=== PATIENT | female | born 1980 | race Caucasian/White ===

== ENCOUNTER 2022-06-21 14:46 | Outpatient (CLI) | payer OTHER, SELFPAY ==
--- NOTE | 2022-06-21 15:00 | CRLHL7_ITS ---
For Patients: As a result of the Cures Act, medical imaging exams and procedure reports are released immediately into your electronic medical record. You may view this report before your referring provider. If you have questions, please contact your health care provider. Indication: Palpable lump Technique: Neck ultrasound Comparison: No comparison Findings: Normal morphology right cervical lymph node, subcentimeter short axis in the area of lump. Dictated by Yesenia Hernandez MD @ 06/23/2022 5:37:49 AM (Electronically Signed)
== END 2022-06-21 14:47 | disposition home or self-care (01) ==
LOC: US 14:48
PROVIDERS: PCP Nurse Practitioner Family; Visit Provider Nurse Practitioner Family
DX: R22.1 Localized swelling, mass and lump, neck (principal)
CPT/HCPCS: 76536

== ENCOUNTER 2023-10-15 12:45 | Emergency (ER) | payer OTHER, SELFPAY ==
[2023-10-15] VITALS (22 sets, daily range): BP systolic 127; BP diastolic 76; PULSE 61–79; RESP 18; TEMP 35.9; O2SAT 94–99; BMI 36.8
--- NOTE | 2023-10-15 12:46 | ED_ITS ---
HPI - General Adult General Date Seen: 10/15/23 Chief complaint: Abdominal Pain Stated complaint: Abdominal pain Time Seen by Provider: 10/15/23 12:46 History of Present Illness HPI narrative: 43-year-old female with a past history including tobacco use, anxiety, genital herpes, shoulder bursitis, who presents to the ER today by EMS for evaluation of severe right lower quadrant abdominal pain. She has been normal lately with no antecedent symptoms. No recent urinary trouble, trouble bowel movements, fever, nausea or vomiting. No known injury. She was normal when she woke up this morning. She was eating breakfast when she had sudden onset of pain loc ated in her right lower quadrant just above her right hip. She says it feels like there is a ball of pressure there. It comes and goes in severe waves. When the pain is severe she is nauseous and she has thrown up once (nonbloody). Bowel movements have been normal. Urination has been normal. She has been sweaty from pain but not running a fever. No rash. No known injury. She has never had any previous abdominal surgeries. No other abdominal problems. she received Zofran 4 mg, Toradol 15 mg and fentanyl 100 mcg per EMS and is now feeling considerably better. Related Data Home Medications Medication Instructions Recorded Confirmed acetaminophen 650 mg 650 mg PO Q12H PRN 10/15/23 10/15/23 tablet,extended release (Tylenol Arthritis Pain) Previous Rx's Medication Instructions Recorded hydrocodone 5 mg-acetaminophen 325 1 tab PO Q4-6H PRN pain #10 tabs 10/15/23 mg tablet ondansetron 4 mg disintegrating 4 mg PO Q8H PRN nausea and 10/15/23 tablet vomiting #10 tabs Allergies Allergy/AdvReac Type Severity Reaction Status Date / Time No Known Allergies Allergy Verified 10/15/23 12:55 [facility] Medical History History of ovarian cyst Surgical History History of left knee surgery History of right knee surgery (10/06/21) History of right knee surgery (06/14/16) Family History Other No pertinent family history Social History Smoking Status: Never smoker Non-prescribed substance use: denies use Exam Narrative: Exam Narrative: Constitutional: Appears well-developed and well-nourished. Alert. Uncomfortable but jovial. Overall,Conversant. Non toxic. HENT: Head: Atraumatic. Nose: Nose normal. Mouth/Throat: Oral mucosa is clear and moist. no trismus. Pharynx normal. Eyes: Conjunctivae normal. EOM normal. Pupils equal, round, and reactive to light. No scleral icterus. Neck: Normal range of motion. Neck supple. No tracheal deviation present. Cardiovascular: Normal rate, regular rhythm. No gallop. No friction rub. No murmur heard. Symmetric radial artery pulses Pulmonary/Chest: Effort normal. No stridor. No respiratory distress. No wheezes. No rales. No rhonchi . No Ribcagetenderness. Abdominal: Soft. Bowel sounds normal. No distension. No mass. right lower quad tenderness. No rebound. No guarding. no CVA tenderness. No palpable inguinal mass or inguinal tenderness. No rash. Musculoskeletal: RUE: Normal range of motion. No tenderness. No deformity LUE: Normal range of motion. No tenderness. No deformity RLE: Normal range of motion. No edema. No tenderness. No deformity LLE: Normal range of motion. No edema. No tenderness. No deformity Neurological: Alert and oriented to person, place, and time. Normal strength. CN II-VII intact. No sensory deficit. GCS eye subscore is 4. GCS verbal subscore is 5. GCS motor subscore is 6. Normal coordination Skin: Skin is warm and dry. No rash noted. No pallor. Normal capillary refill. Psychiatric: Normal mood. Normal affect. Const: Vital Signs, click to edit/add: Vital Signs - 24 hr 10/15/23 12:56 10/15/23 13:18 10/15/23 13:30 Temperature 96.6 F L Pulse Rate 69 72 Pulse Rate [Pulse Oximeter] 72 Respiratory Rate 18 Blood Pressure [Ri ght Upper Arm] 127/76 Pulse Oximetry 97 97 97 Oxygen Delivery Me thod Room Air 10/15/23 13:35 10/15/23 13:45 10/15/23 14:00 Temperature Pulse Rate 66 66 79 Pulse Rate [Pulse Oximeter] Respiratory Rate Blood Pressure [Ri ght Upper Arm] Pulse Oximetry 95 97 97 Oxygen Delivery Me thod 10/15/23 14:15 10/15/23 14:30 10/15/23 14:35 Temperature Pulse Rate 69 67 65 Pulse Rate [Pulse Oximeter] Respiratory Rate Blood Pressure [Ri ght Upper Arm] Pulse Oximetry 98 98 98 Oxygen Delivery Me thod 10/15/23 14:45 10/15/23 15:00 10/15/23 15:15 Temperature Pulse Rate 68 74 68 Pulse Rate [Pulse Oximeter] Respiratory Rate Blood Pressure [Ri ght Upper Arm] Pulse Oximetry 99 98 97 Oxygen Delivery Me thod 10/15/23 15:30 10/15/23 15:45 10/15/23 16:00 Temperature Pulse Rate 69 62 64 Pulse Rate [Pulse Oximeter] Respiratory Rate Blood Pressure [Ri ght Upper Arm] Pulse Oximetry 97 96 97 Oxygen Delivery Me thod 10/15/23 16:25 10/15/23 16:30 10/15/23 16:45 Temperature Pulse Rate 75 68 69 Pulse Rate [Pulse Oximeter] Respiratory Rate Blood Pressure [Ri ght Upper Arm] Pulse Oximetry 97 98 97 Oxygen Delivery Me thod 10/15/23 17:00 10/15/23 17:15 10/15/23 17:30 Temperature Pulse Rate 65 61 67 Pulse Rate [Pulse Oximeter] Respiratory Rate Blood Pressure [Ri ght Upper Arm] Pulse Oximetry 94 94 96 Oxygen Delivery Me thod 10/15/23 17:46 Temperature Pulse Rate 69 Pulse Rate [Pulse Oximeter] Respiratory Rate Blood Pressure [Ri ght Upper Arm] Pulse Oximetry 99 Oxygen Delivery Me thod Course Course ED Course: Recheck-CT scan came back showing large cystic mass adjacent to right ovary. Discussed with Gynecology. They Rue plan to get pelvic ultrasound. Unless there is recurrent severe pain they would recommend outpatient follow-up in clinic so they can get tumor markers and do planning for operative intervention. However the patient has recurrent severe pain, Gynecology would come in and take the patient to the OR to evaluate for possible torsion. Reevaluation(s) Reevaluation #1: Recheck-discussed with patient her family. She is eager to discharge but is willing to stay for ultrasound. Reevaluation #2: Recheck-ultrasound came back showing a cystic mass. Unable to clearly identify right ovary but we are suspicious that this mass is coming from the right ovary. She is having minimal ongoing pain but says if anything she would take Tylenol for it. No recurrent severe pain. She is eager for discharge. Vital Signs Vital signs: Initial Vital Signs Temperature 96.6 F L 10/15/23 12:56 Temperature Source Temporal Artery Scan 10/15/23 12:56 Pulse Rate 72 10/15/23 12:56 Respiratory Rate 18 10/15/23 12:56 Blood Pressure 127/76 10/15/23 12:56 Blood Pressure Mean 93 10/15/23 12:56 Blood Pressure Position Sitting 10/15/23 12:56 Pulse Oximetry 97 10/15/23 12:56 Oxygen Delivery Method Room Air 10/15/23 12:56 Vital Signs Temperature 96.6 F L 10/15/23 12:56 Pulse Rate 72 10/15/23 12:56 Respiratory Rate 18 10/15/23 12:56 Blood Pressure 127/76 10/15/23 12:56 Pulse Oximetry 97 10/15/23 12:56 Oxygen Delivery Method Room Air 10/15/23 12:56 Temperature 96.6 F L 10/15/23 12:56 Pulse Rate 69 10/15/23 17:46 Respiratory Rate 18 10/15/23 12:56 Blood Pressure 127/76 10/15/23 12:56 Pulse Oximetry 99 10/15/23 17:46 Oxygen Delivery Method Room Air 10/15/23 12:56 Medical Decision Making MDM Narrative Medical decision making narrative: Very pleasant 43-year-old female presenting to the ER today by EMS for severe sudden-onset right lower quadrant abdominal pain. Pain is now much improved (nearly completely resolved) after Toradol and fentanyl per EMS. Differential includes kidney stone, pyelonephritis, unusual presentation of appendicitis, right-sided diverticulitis, colitis, volvulus, torsion, obstruction, ovarian pathology, among others. Urinalysis is normal. Stone protocol CT scan shows no evidence for any obstructing stones or hydronephrosis. Appendix normal and no other inflammatory pathology noted on CT. There is a finding of an 11 x 12 x 14 cm right ovarian cystic lesion. Pelvic ultrasound redemonstrates the cystic lesion. With a large lesion like this concern is for possible torsion. She did have severe pain prior to presentation but is very comfortable here in the ER. She was monitored for several hours without any significant return of pain. She did note some mild recurrent pain but says if anything she would take Tylenol for it. It was not severe. At this point there is no did convincing evidence for ongoing ovarian torsion or any clear surgical emergency. Discussed with the patient, in detail, our concern for torsion. She understands that if she does have any worsening pain she should return to the ER immediately to be rechecked. She understands the risk of torsion. Discussed with Gynecology, Dr. Roman. She would recommend as long as the patient's pain is very low the patient should follow-up in clinic for tumor markers and further evaluation given that there is overall low clinical probab ility for torsion and that surgery would be safer and better for the patient after further workup. If there is concern for malignancy she would do better with surgery done by field automobile adjuster/Onc. Therefore, if surgery can be delayed, it would be better for the patient. However with recurrent severe pain, this raises concern for torsion, this would push us toward emergent operative intervention. The patient plans to travel to [place], leaving tomorrow. We advised her that it would be best to stay home. International travel with potential for recurrent torsion could lead to a medical emergency on the plane or while she is traveling abroad. She verbalizes her understanding. She is provided with a doctor's note so that she can provided to her airline. Lab Data Labs: Lab Results 10/15/23 10/15/23 Range/Units 13:04 14:04 WBC 14.79 H (4.50-11.00) K/uL RBC 4.26 (4.00-5.20) m/uL Hgb 12.8 (12.0-16.0) gm/dL Hct 39.2 (33.0-51.0) % MCV 92 (80-100) fL MCH 30 (26-34) pg MCHC 33 (32-36) gm/dL RDW Coeff of Celena 13.0 (11.5-15.5) % Plt Count 307 (140-440) K/uL Neut % (Auto) 76.0 H (42.0-72.0) % Lymph % (Auto) 16.6 L (20-44) % Garrett % (Auto) 5.8 (0.0-11.0) % Eos % (Auto) 1.1 (0.0-7.0) % Baso % (Auto) 0.3 (0.0-3.0) % Neut # (Auto) 11.20 H (1.7-7.0) K/uL Lymph # (Auto) 2.50 (0.90-2.90) K/uL Garrett # (Auto) 0.90 (0.00-0.90) K/UL Eos # (Auto) 0.20 (0.00-0.50) K/uL Baso # (Auto) 0.00 (0.00-0.30) K/uL Abs Immat Gran (auto) 0.00 (0.00-0.30) K/uL Imm/Tot Granulo (auto) 0.2 % Sodium 136 (135-149) mmol/L Potassium 3.6 (3.6-5.1) mmol/L Chloride 107 (96-114) mmol/L Carbon Dioxide 23 (20-32) mmol/L Anion Gap 6 L (7-15) mEq/L BUN 13 (5-24) mg/dL Creatinine 0.5 (0.5-1.5) mg/dL Estimated Creat Clear 138.17 Estimated GFR 118 ml/min Glucose 124 H (60-115) mg/dL Calcium 10.1 (8.4-10.6) mg/dL Total Bilirubin 0.3 (0.1-1.5) mg/dL AST 22 (12-35) U/L ALT 26 (4-35) U/L Alkaline Phosphatase 84 (40-150) U/L Total Protein 7.2 (6.0-8.3) g/dL Albumin 4.0 (3.3-5.0) g/dL Lipase 77 (23-300) U/L Urine Color Sherry A (Yellow) Urine Appearance Slightly Cloudy A (Clear) Urine pH 6.0 (5.0-8.5) Ur Specific [place] >= 1.030 (1.000-1.030) Urine Protein Negative (Negative) Urine Glucose (UA) Negative (Negative) Urine Ketones Negative (Negative) Urine Blood Negative (Negative) Urine Nitrite Negative (Negative) Urine Bilirubin Negative (Negative) Urine Urobilinogen 0.2 (0.2-1.0) Ur Leukocyte Esterase Negative (Negative) Urine RBC 0-2 (0-2) Urine WBC 0-2 (0-5) Ur Squamous Epith Cells None (None-Few) Urine Bacteria None (None) Urine HCG, Qual Negative (Negative) Imaging Data CT scan - abdomen: Attestation: I have reviewed the pertinent imaging results. Radiologist's impression: Impression: 1. No CT evidence of an acute process involving the abdomen or pelvis. 2. Large cystic lesion arising from the right ovary measuring 11 x 12 x 14 centimeters with multiple thin internal septations, favored to represent an ovarian tumor such as an ovarian serous cystadenoma. Recommend consultation with gynecology for further management recommendations. 3. No abdominopelvic lymphadenopathy. 4. There is an exophytic soft tissue density lesion arising from the anterior aspect of the interpolar region of the left kidney measuring approximately 2.4 centimeters in greatest dimension, incompletely characterized on this exam. Recommend dedicated CT or MR with a renal protocol for further assessment. US pelvis: Attestation: I have reviewed the pertinent imaging results. Radiologist's impression: FINDINGS: 10.0 x 9.8 x 13.6 cm right adnexal complex cystic mass with multiple thick internal septations. Spectral Doppler demonstrates peripheral low resistance systemic arterial blood flow. Internal venous blood flow is demonstrated on spectral Doppler at the confluence of 2 curvilinear septations (image 290). LMP: Not provided. Uterus: Measures 4.3 x 4.0 x 8.3cm. 2.1 cm left posterior myometrial fibroid which abuts the endometrial stripe (image 160). Multiple simple nabothian cysts are noted incidentally. Please note that US is insensitive for detection of epithelial lesions of the cervix, compared to physical examination. Endometrial stripe: Measures 5mm. Uniform in thickness. Right Ovary: A normal right ovary is not identified. Left Ovary: Measures 2.3 x 2.0 x 4.1cm. 2.6 cm follicle. Spectral Doppler demonstrates normalarterial and venousblood flow. Pelvic fluid: No significant pelvic ascites. Small volume free fluid within physiologic limits of normal. IMPRESSION: 13.6 cm right adnexal complex cystic mass described above, likely ovarian in nature. Neoplastic disease is included in the differential for this lesion. GENETIC TECHNOLOGIST surgical referral is recommended for definitive treatment. Incidental uterine fibroid described above. Discharge Plan Discharge Clinical Impression: Abdominal pain, right lower quadrant, Mass of right ovary Patient Disposition: Home, Self-Care Condition: Stable Instructions: Ovarian Cyst (ED) Additional Instructions: Please follow-up with the supervisor [facility] in [place] within 1 week. Call on Tuesday to arrange an ER follow-up with the gynecologists. Call [phone] on Tuesday to schedule an ER follow-up visit. If you have any worsening pain, nausea or vomiting, fever, or other worsening symptoms, return to the ER immediately to be rechecked. Use Tylenol or ibuprofen if needed for mild pain. Use caution with prescription pain killers because they can cause drowsiness, sedation, constipation, and can be addictive. We advise you not to travel to [place] until this cyst is completely worked up. Call your airline to see if you can reschedule your travel. Prescriptions: New hydrocodone-acetaminophen 5-325 mg tablet 1 tab PO Q4-6H PRN (Reason: pain) Qty: 10 0RF ondansetron 4 mg tablet,disintegrating 4 mg PO Q8H PRN (Reason: nausea and vomiting) Qty: 10 0RF No Action acetaminophen [Tylenol Arthritis Pain] 650 mg tablet extended release 650 mg PO Q12H PRN Follow Up/Referrals: Kyra Taylor, WEARING APPAREL FOLDER, FOREST OFFICER [Primary Care Provider] - Stand Alone Forms: [employer] Info Instructions
--- NOTE | 2023-10-15 12:54 | CT_ITS ---
Patient: SCAR TOBIAS Facility:?[facility] Patient ID:?[id number] Site Patient ID:?[id number]. Site :?[id number] Study:?CT-Abdomen/Pelvis WITHOUT-10/15/2023 1:18:33 PM Ordering Physician:?DR. MCRAE Final Report: Indication: Right lower quadrant pain, nausea and vomiting Technique: CT abdomen/pelvis without IV contrast Comparison: None Findings: The visualized lower thorax is unremarkable. The liver, gallbladder, spleen, pancreas, and bilateral adrenal glands are unremarkable. The kidneys are normal in size. There is an exophytic soft tissue density lesion arising from the anterior aspect of the interpolar region of the left kidney measuring approximately 2.4 centimeters in greatest dimension. No renal calculi or hydroureteronephrosis. The bladder is within normal limits in appearance. The uterus appears within normal limits. Likely fallopian tube control coils. The left ovary appears within normal limits. There is a cystic lesion arising from the right ovary with multiple thin internal septations without significant nodular wall components measuring approximately 11 centimeters AP by 12 centimeters transverse by 14 centimeters craniocaudal. No evidence of bowel obstruction or inflammation. The appendix is normal in appearance. No free fluid or free air. No abdominal or pelvic abscess. No abdominopelvic lymphadenopathy. No abdominal aortic aneurysm. Small fat containing umbilical hernia. The osseous structures are unremarkable. Impression: 1. No CT evidence of an acute process involving the abdomen or pelvis. 2. Large cystic lesion arising from the right ovary measuring 11 x 12 x 14 centimeters with multiple thin internal septations, favored to represent an ovarian tumor such as an ovarian serous cystadenoma. Recommend consultation with gynecology for further management recommendations. 3. No abdominopelvic lymphadenopathy. 4. There is an exophytic soft tissue density lesion arising from the anterior aspect of the interpolar region of the left kidney measuring approximately 2.4 centimeters in greatest dimension, incompletely characterized on this exam. Recommend dedicated CT or MR with a renal protocol for further assessment. Please note that all CT scans at this facility use dose modulation, iterative reconstruction, and/or weight-based dosing when appropriate to reduce radiation dose to as low as reasonably achievable. Dictated by Luiz Gallego MD @ 10/15/2023 2:20:52 PM Signed by:?Luiz Gallego MD @10/15/2023 2:20:52 PM (Electronic Signature)
[2023-10-15 13:14] LABS: Basophils Percent Auto 0.3 % (0.0-3.0); Eosinophils Percent Auto 1.1 % (0.0-7.0); Hematocrit 39.2 % (33.0-51.0); Hemoglobin* 12.8 gm/dL (12.0-16.0); Immature Granulocytes Pct Auto 0.2 %; Lymphocytes Percent Auto 16.6 % (20-44); Mean Corpuscular HGB Conc 33 gm/dL (32-36); Mean Corpuscular Hemoglobin 30 pg (26-34); Mean Corpuscular Volume 92 fL (80-100); Monocytes Percent Auto 5.8 % (0.0-11.0); Platelet Count* 307 K/uL (140-440); Red Blood Count 4.26 m/uL (4.00-5.20); White Blood Count* 14.79 K/uL (4.50-11.00)
[2023-10-15 13:23] LABS: Slide Review Reflex No
[2023-10-15 13:29] LABS: Chloride* 107 mmol/L (96-114); Potassium* 3.6 mmol/L (3.6-5.1); Sodium* 136 mmol/L (135-149)
[2023-10-15 13:31] LABS: Anion Gap 6 mEq/L (7-15); Bilirubin Total* 0.3 mg/dL (0.1-1.5); Carbon Dioxide* 23 mmol/L (20-32); Creatinine* 0.5 mg/dL (0.5-1.5); Est. Creatinine Clearance* 138.17; Estimated Glomerular Filt Rate 118 ml/min
[2023-10-15 13:32] LABS: Alanine Aminotransferase* 26 U/L (4-35); Alkaline Phosphatase* 84 U/L (40-150); Aspartate Amino Transferase* 22 U/L (12-35); Blood Urea Nitrogen* 13 mg/dL (5-24); Calcium* 10.1 mg/dL (8.4-10.6); Glucose* 124 mg/dL (60-115); Lipase* 77 U/L (23-300); Total Protein* 7.2 g/dL (6.0-8.3)
[2023-10-15 14:18] LABS: Appearance Urine Slightly Cloudy (Clear); Bilirubin Urine Negative (Negative); Blood Urine Negative (Negative); Color Urine Amber (Yellow); Glucose Urine Negative (Negative); Ketones Urine Negative (Negative); Leukocyte Esterase Urine Negative (Negative); Nitrite Urine Negative (Negative); Protein Urine Negative (Negative); Specific Gravity Urine >= 1.030 (1.000-1.030); Urobilinogen Urine 0.2 (0.2-1.0)
[2023-10-15 14:25] LABS: Ur HCG Qualitative* Negative (Negative)
[2023-10-15 14:44] LABS: RBC Urine 0-2 (0-2); WBC Urine 0-2 (0-5)
--- NOTE | 2023-10-15 15:16 | US_ITS ---
Patient: SCAR TOBIAS Facility:?[facility] Patient ID:?[id number] Site Patient ID:?[id number]. Site :?[id number] Study:?US-Pelvis TV-10/15/2023 4:36:52 PM Ordering Physician:?ED Final Report: INDICATION: Right ovarian mass. COMPARISON: Today`s CT of the abdomen and pelvis. TECHNIQUE: Pelvic grayscale and spectral Doppler ultrasound via an endovaginal approach. FINDINGS: 10.0 x 9.8 x 13.6 cm right adnexal complex cystic mass with multiple thick internal septations. Spectral Doppler demonstrates peripheral low resistance systemic arterial blood flow. Internal venous blood flow is demonstrated on spectral Doppler at the confluence of 2 curvilinear septations (image 290). LMP: Not provided. Uterus: Measures 4.3 x 4.0 x 8.3cm. 2.1 cm left posterior myometrial fibroid which abuts the endometrial stripe (image 160). Multiple simple nabothian cysts are noted incidentally. Please note that US is insensitive for detection of epithelial lesions of the cervix, compared to physical examination. Endometrial stripe: Measures 5mm. Uniform in thickness. Right Ovary: A normal right ovary is not identified. Left Ovary: Measures 2.3 x 2.0 x 4.1cm. 2.6 cm follicle. Spectral Doppler demonstrates normalarterial and venousblood flow. Pelvic fluid: No significant pelvic ascites. Small volume free fluid within physiologic limits of normal. IMPRESSION: 13.6 cm right adnexal complex cystic mass described above, likely ovarian in nature. Neoplastic disease is included in the differential for this lesion. SILO PAINTER surgical referral is recommended for definitive treatment. Incidental uterine fibroid described above. Dictated by Iftikhar Underwood MD @ 10/15/2023 5:07:05 PM Signed by:?Iftikhar Underwood MD @10/15/2023 5:07:05 PM (Electronic Signature)
== END 2023-10-15 18:01 | disposition home or self-care (01) ==
PROVIDERS: Emergency Provider Emergency Medicine; PCP Nurse Practitioner Family
DX: R10.31 Right lower quadrant pain (principal); N83.201 Unspecified ovarian cyst, right side
CPT/HCPCS: 36415; 74176; 76830; 80053; 81001; 81025; 83690; 85025; 93976; 99284

== ENCOUNTER 2023-10-25 10:12 | Outpatient (CLI) | payer OTHER, BC, SELFPAY | END 2023-10-25 10:13 | disposition home or self-care (01) | PROVIDERS: PCP Nurse Practitioner Family; Visit Provider Obstetrics & Gynecology | DX: N83.8 Other noninflammatory disorders of ovary, fallopian tube and broad ligament (principal) | CPT/HCPCS: 82378; 86301; 86304 ==

== ENCOUNTER 2023-12-22 09:01 | Outpatient (CLI) | payer OTHER, BC, SELFPAY | END 2023-12-22 09:02 | disposition home or self-care (01) | PROVIDERS: PCP Nurse Practitioner Family; Visit Provider Nurse Practitioner Family | DX: Z01.818 Encounter for other preprocedural examination (principal) | CPT/HCPCS: 80053; 85025 ==

== ENCOUNTER 2024-01-31 09:04 | Outpatient (CLI) | payer OTHER, BC, SELFPAY ==
--- NOTE | 2024-01-31 09:00 | CRLHL7_ITS ---
For Patients: As a result of the Century Cures Act, medical imaging exams and procedure reports are released immediately into your electronic medical record. You may view this report before your referring provider. If you have questions, please contact your health care provider. INDICATION: Renal mass. TECHNIQUE: CT abdomen and pelvis acquired with 119 cc Isovue 370 IV contrast. COMPARISON: None. FINDINGS: Lower chest: Unremarkable. Liver: Unremarkable. Normal in size and attenuation. No suspicious masses. Gallbladder and bile ducts: Unremarkable. No stones or inflammation. No biliary dilatation. Pancreas: Unremarkable. No mass or inflammation. Spleen: Unremarkable. Normal in size. No masses. Adrenal glands: Unremarkable. No nodules. Kidneys: Lobular 2.4 x 1.9 x 1.7 centimeter mass arising from the anterior aspect of the left kidney. This measures 38 Hounsfield units precontrast, 69 Hounsfield units postcontrast and 82 Hounsfield units on the delayed acquisition. Relatively homogeneous enhancement. No other renal mass. No hydronephrosis. GI tract: Unremarkable. Normal in caliber. No sign of mass or inflammation. Vasculature: Abdominal aorta is normal in caliber. Mesenteric arteries are patent. Lymph nodes: No lymphadenopathy. Peritoneum/Abdominal Wall: Small fat containing umbilical hernia. No sign of mass or infiltration. No free air or significant free fluid. Bones: Unremarkable for age. IMPRESSION: Lobular 2.4 centimeter left renal mass demonstrates enhancement after contrast administration. This is consistent with a solid renal mass and hence is suspicious for RCC. Please note that all CT scans at this facility use dose modulation, iterative reconstruction, and/or weight-based dosing when appropriate to reduce radiation dose to as low as reasonably achievable. Dictated by Vik Astudillo MD @ 02/01/2024 6:31:57 AM (Electronically Signed)
== END 2024-01-31 09:05 | disposition home or self-care (01) ==
LOC: CT 09:05
PROVIDERS: PCP Nurse Practitioner Family; Visit Provider Nurse Practitioner Family
DX: N28.89 Other specified disorders of kidney and ureter (principal)
CPT/HCPCS: 74170; 74178; Q9967

== ENCOUNTER 2024-05-17 09:07 | Outpatient (CLI) | payer OTHER, SELFPAY ==
--- OUTSIDE RECORDS SUMMARY | 2024-05-18 09:31 | XMS_ITS | Encounter Summary ---
Author Organization [facility] Address [address] [place] [address] Care Team Providers Care Stock Handler Floorperson Name Role Phone Unavailable Primary Care Provider Unavailabl e Reason for Referral * Outpatient (Routine) - Closed Specialty Diagnoses / Procedures Referred By Marquis reveles Referred To Contact Urology Diagnoses Mass Kidney Kyra Taylor, C.N.P. [address] [place] [address] [facility] Referral ID Status Reason Start Date Expiration Date Visits Re quested Visits Authorized [id number] Closed 02/02/2024 08/03/2025 1 1 Encounter Details Date Type Department Care Team (Late st Contact Info) Description 02/02/2024 [facility] [address] [place] [address] Kyra Taylor, C.N.P. [address] [place] [address] Mass Kidney (Primary Dx) Social History Tobacco Use Types Packs/Day Years Used Date Smoking Tobacco: Every Day Cigarettes Smokeless Tobacco: Never Alcohol Use Standard Drinks/Week Comments Yes 0 (1 standard drink = 0.6 oz pur e alcohol) social [facility] Utilities Answer Date Recorded In the past 12 months has e electric, gas, oil, or water company threatened to shut off services in your home? No 02/07/2024 AUDIT-C Answer Date Recorded Frequency of Alcohol Consumption Monthly or less 07/26/2019 Average Number of Drinks Not on file 019 Frequency of Binge Drinking Not on file 07/08 Exercise Vital Sign Answer Date Recorde d On average, how many days pe r week do you engage in moderate to strenuous exercise (like a brisk walk)? 7 days 02/07/2024 On average, how many minutes do you engage in exercise at this level? 20 min 02/07/2024 Hunger Vital Sign Answer Date Recorded Within the past 12 months, y ou worried that your food would run out before you got the money to buy more. Never true 02/07/20 24 Within the past 12 months, t he food you bought just didn't last and you didn't have money to get more. Never true 02/07/2024 PRAPARE - Transportation Answer Date Re corded In the past 12 months, has l ack of transportation kept you from medical appointments or from getting medications? No 09/2023 In the past 12 months, has l ack of transportation kept you from meetings, work, or from getting things needed for daily living? No 02/07/2024 Nutrition Answer Date Recorded On average, how many serving s of fruits and vegetables do you eat per day (serving size is equal to 1 cup or approximately the size of a tennis ball)? 0-2 02/07/2024 Dental Answer Date Recorded Dental: Regular Dentist Yes 02/07/20 Employment Answer Date Recorded Employment status Employed and actively working without restrictions 02/07/2024 Housing Stability Answer Date Recorded What is your living situation today? I have a [facility] place to live 02/07/2024 Sex and Gender Information Value Date Recorded Sex Assigned at Female 02/05/2024 10:49 PM CDT Gender Identity Female 02/05/2024 10:49 PM CDT Sexual Orientation Straight 02/05/2024 10 :49 PM CDT documented as of this encounter Plan of Treatment Upcoming Encounters Date Type Department Care Team (Latest Contact Info) Description 07/13/2024 11:00 AM LOGISTICS ANALYST Clinical Communication Virtual Review in [place], [place] [address] [place] [phone] 07/17/2024 7:45 AM LOGISTICS ANALYST Appointment Department of Radiology, [facility], in [place], [place] [address] [place] [address] Phuong Barrientos APRN, C.NPaulo, M.S.N. [address] [place] [phone] 07/17/2024 1:30 PM LOGISTICS ANALYST Procedure visit Department of Urology in [place], [place] [address] [place] [phone] Phuong Barrientos APRN, C.N.P., M.S.N. [address] [place] [phone] 07/17/2024 2:30 PM LOGISTICS ANALYST Comprehensive Visit Department of Urology in [place], [place] [address] [place] [phone] Lotus Marshall APRN, C.NPaulo, M.S.N. [address] [place] [phone] Scheduled Referrals Name Type Priority Associated Diagnoses Order Schedule Nephrology & Hypertension Referral Outpatient Referral Routine Mass Kidney Expected: 02/02/2024 (Approximate), Expires: 05/04/2025 documented as of this encounter Visit Diagnoses Diagnosis Mass Kidney- Primary documented in this encounter
--- OUTSIDE RECORDS SUMMARY | 2024-05-18 09:31 | XMS_ITS | Encounter Summary ---
Author Organization [facility] Address [address] [place] [address] Care Team Providers Care Nutritional Services Cook Name Role Phone Unavailable Primary Care Provider Unavailabl e Reason for Referral * Outpatient (Routine) - Closed Specialty Diagnoses / Procedures Referred By Marquis t Referred To Contact Diagnoses Mass Kidney Procedures DX Chest AP or PA and Lateral 2 Views Rigo Barakat M.D. [address] [place] [address] [facility] Referral ID Status Reason Start Date Expiration Date Visits Re quested Visits Authorized [id number] Closed 02/03/2024 02/02/2025 1 1 Encounter Details Date Type Department Care Team (Late st Contact Info) Description 02/03/2024 Clinical Communication Department of Urology in [place], [place] [address] [place] [phone] Rigo Barakat M.D. [address] [place] [phone] Social History Tobacco Use Types Packs/Day Years [...] your living situation today? I have a [facility] place to live 02/07/2024 Sex and Gender Information Value Date Recorded Sex Assigned at Female 02/05/2024 10:49 PM CDT Gender Identity Female 02/05/2024 10:49 PM CDT Sexual Orientation Straight 02/05/2024 10 :49 PM CDT documented as of this encounter Plan of Treatment Upcoming Encounters Date Type Department Care Team (Latest Contact Info) Description 07/13/2024 11:00 AM LINE PRODUCTION COOK Clinical Communication Virtual Review in [place], [place] [address] [place] [address] 07/17/2024 7:45 AM LINE PRODUCTION COOK Appointment Department of Radiology, [facility], in [place], [place] [address] [place] [address] Phuong Barrientos APRN, C.NRachelle., M.S.N. [address] [place] [phone] 07/17/2024 1:30 PM LINE PRODUCTION COOK Procedure visit Department of Urology in [place], [place] [address] [place] [address] Puhong Barrientos APRN, C.NRachelle., M.S.N. [address] [place] [phone] 07/17/2024 2:30 PM LINE PRODUCTION COOK Comprehensive Visit Department of Urology in [place], [place] [address] [place] [address] Lotus Marshall APRN, C.NPaulo, M.S.N. [address] [place] [phone] documented as of this encounter Results * DX Chest AP or PA and Lateral 2 Views (02/06/2024 10:51 AM CDT) Anatomical Region Laterality Modality Chest, Thoracic RST LOS, Tho racic ARZ LOS, Thoracic FLA LOS N/A Digital Radiography Impressions 02/06/2024 11:07 AM CDT Mild degenerative changes thoracic spine. Chest otherwise negative. Narrative 02/06/2024 11:07 AM CDT EXAM: ??DX CHEST AP OR PA AND LATERAL 2 VIEWS Procedure Note Blaine Neumann M.D. - 02/06/2024 EXAM: DX CHEST AP OR PA AND LATERAL 2 VIEWS IMPRESSION: Mild degenerative changes thoracic spine. Chest otherwise negative. Rigo EPSTEIN DIAGNOSTIC IMAGI NG PROCEDURES * Urinalysis, with Microscopic: Urine, Midstream (02/06/2024 10:32 AM CDT) Source Urine, Urine, Midstream 02/06/2024 11:14 AM CDT DTL Color, U Yellow 02/06/2024 11:15 AM CDT DTL Clarity, U Clear 02/06/2024 11:15 AM CDT DTL Protein, U 13 <26 mg/dL 02/06/2024 12:00 PM CDT DTL Protein/Osmol ality 0.19 <0.42 ratio 02/06/2024 12:00 PM CDT DTL Predicted 24 HR Protein, U 146 <229 mg/24 h 02/06/2024 12:00 PM CDT DTL Predicted Range 36-591 mg/24 h 02/06/2024 12:00 PM CDT DTL Urine (Urine, Midstream) 02/06/2024 10:32 AM CDT 02/06/2024 11:14 AM CDT Rigo Barakat M.D. LAB URINE ORDERABLES Performing Organization Address City/[facility]/ZIP Co de Phone Number [facility] [address] [place] [address], [facility] [address] [place] [address] * Creatinine with Estimated GFR (02/06/2024 10:27 AM CDT) Creatinine 0.83 0.59 - 1.04 mg/dL 02/06/2024 11:33 AM CDT DTL Estimated GFR (eGFR) 89 >=60 mL/min/BSA 02/06/2024 11:33 AM CDT DTL Comment: Estimated GFR calculated using the 2020 CKD_EPI creatinine equation. Blood (Blood, Venous) 02/06/2024 10:27 AM CDT 02/06/2024 11:13 AM CDT Rigo Barakat M.D. LAB BLOOD ADD-ON [facility] [address] [place] [address], [facility] [address] [place] [address] * (ABNORMAL) Calcium, Total (02/06/2024 10:27 AM CDT) Calcium, Total, S 10.2(H) 8.6 - 10.0 mg/dL 02/06/2024 11:33 AM CDT DTL Blood (Blood, Venous) 02/06/2024 10:27 AM CDT 02/06/2024 11:13 AM CDT Rigo Barakat M.D. LAB BLOOD ADD-ON [facility] [address] [place] [address], [facility] [address] [place] [address] * Electrolyte (Chem 4) Panel (02/06/2024 10:27 AM CDT) Sodium, S 139 135 - 145 mmol/L 02/06/2024 11:33 AM CDT DTL Potassium, S 4.7 3.6 - 5.2 mmol/L 02/06/2024 11:33 AM CDT DTL Chloride, S 105 98 - 107 mmol/L 02/06/2024 11:33 AM CDT DTL Bicarbonate, S 23 22 - 29 mmol/L 02/06/2024 11:33 AM CDT DTL Anion Gap 11 7 - 15 02/06/2024 11:33 AM CDT DTL Blood (Blood, Venous) 02/06/2024 10:27 AM CDT 02/06/2024 11:13 AM CDT Rigo Barakat M.D. LAB BLOOD ADD-ON [facility] [address] [place] [address], [facility] [address] [place] [address] * BUN (Blood Urea Nitrogen) (02/06/2024 10:27 AM CDT) BUN (Blood Urea Nitrogen), S 11 6 - 21 mg/dL 02/06/2024 11:33 AM CDT DTL Blood (Blood, Venous) 02/06/2024 10:27 AM CDT 02/06/2024 11:13 AM CDT Rigo Barakat M.D. LAB BLOOD ADD-ON [facility] [address] [place] [address], [facility] DTL [facility] [address] [place] [address] * CBC with Differential, Blood (02/06/2024 10:27 AM CDT) Hemoglobin 13.7 11.6 - 15.0 g/dL 02/06/2024 11:14 AM CDT DTL Hematocrit 42.6 35.5 - 44.9 % 02/06/2024 11:14 AM CDT DTL Erythrocytes 4.53 3.92 - 5.13 x10(12)/L 02/06/2024 11:14 AM CDT DTL MCV 94.0 78.2 - 97.9 fL 02/06/2024 11:14 AM CDT DTL RBC Distrib Width 13.8 12.2 - 16.1 % 02/06/2024 11:14 AM CDT DTL Platelet Count 294 157 - 371 x10(9)/L 02/06/2024 11:14 AM CDT DTL Leukocytes 7.3 3.4 - 9.6 x10(9)/L 02/06/2024 11:14 AM CDT DTL Neutrophils 4.36 1.56 - 6.45 x10(9)/L 02/06/2024 11:14 AM CDT DHPM Lymphocytes 2.05 0.95 - 3.07 x10(9)/L 02/06/2024 11:14 AM CDT DTL Monocytes 0.57 0.26 - 0.81 x10(9)/L 02/06/2024 11:14 AM CDT DTL Eosinophils 0.21 0.03 - 0.48 x10(9)/L 02/06/2024 11:14 AM CDT DTL Basophils 0.07 0.01 - 0.08 x10(9)/L 02/06/2024 11:14 AM CDT DT Blood (Blood, Venous) 02/06/2024 10:27 AM CDT 02/06/2024 10:52 AM CDT Rigo Barakat M.D. LAB BLOOD ADD-ON [facility] [address] 200 [place] [address] * AST (Aspartate Aminotransferase) (02/06/2024 10:27 AM CDT) Aspartate Aminotransferase (AST), S 25 8 - 43 U/L 02/06/2024 11:33 AM CDT DT Blood (Blood, Venous) 02/06/2024 10:27 AM CDT 02/06/2024 11:13 AM CDT Rigo Barakat M.D. LAB BLOOD ADD-ON [facility] [address] 200 [place] [address] * ALT (Alanine Aminotransferase) (02/06/2024 10:27 AM CDT) Alanine Aminotransferase (ALT), S 37 7 - 45 U/L 02/06/2024 11:33 AM CDT DT Blood (Blood, Venous) 02/06/2024 10:27 AM CDT 02/06/2024 11:13 AM CDT Rigo Barakat M.D. LAB BLOOD ADD-ON [facility] [address] [place] [address] [place] [address] * (ABNORMAL) Alkaline Phosphatase (02/06/2024 10:27 AM CDT) Alkaline Phosphatase, S 105(H) 35 - 104 U/L 02/06/2024 11:33 AM CDT DTL Blood (Blood, Venous) 02/06/2024 10:27 AM CDT 02/06/2024 11:13 AM CDT Rigo Barakat M.D. LAB BLOOD ADD-ON [facility] [address] [place] [address], [facility] [address] [place] [address] documented in this encounter Visit Diagnoses Diagnosis Mass Kidney- Primary Mass Kidney documented in this encounter
--- OUTSIDE RECORDS SUMMARY | 2024-05-18 09:31 | XMS_ITS | Clinical Summary ---
Author Organization [facility] Address [address] [place] [address] Care Team Providers Care Bakery Helper Name Role Phone Unavailable Primary Care Provider Unavailabl e Source Comments Patient records contain information from all sites at [facility]. For routine questions regarding patient records, call [phone] during business hours, M-F 8:00 AM - 5:00 PM Central Time. Record requests for emergency care only can be directed to [phone] at any time.[facility] Allergies No known active allergies Medications Medication Sig Dispensed Refills Start Date End Date Status ACETAMINOPHEN ORAL Take 1 capsule by mouth as needed. Active IBUPROFEN ORAL Take 1 capsule by mouth as needed. Active Active Problems Problem Noted Date Diagnosed Date Obesity Body Mass Index 30-39.9 Adult 07/26/2019 Tobacco Use 11/16/2011 Herpes Genitalis 08/20/2010 Resolved Problems Problem Noted Date Diagnosed Date Resolved Date Cyst Ovary 03/09/2013 07/26/2019 Menorrhagia 03/09/2013 07/26/2019 Encounters Date Type Department Care Team Description 03/23/2024 11:27 AM CDT - 03/23/2024 11:59 PM CDT Hospital Encounter Department of Laboratory Medicine and Pathology, [facility] in [place], [place] [address] [place] [phone] Santos Hawkins M.D. Mass Kidney; Kidney And Ureter Disorder Discharge Disposition: Home or Self Care 03/23/2024 Clinical Communication Department of Medical Genetics in [place], [place] [address] [place] [phone] Loreto Abdul M.S., [facility] Ambry : BABS 03/21/2024 9:15 AM CDT Telemedicine Department of Medical Genetics in [place], [place] [address] [place] [address] Phuong Barrientos APRN, C.N.P., M.S.N. Loreto Abdul M.S., [facility] Mass Kidney; Kidney And Ureter Disorder from Last 3 Months Immunizations Name Administration Dates Next Due HepB, Unspecified 01/08/2008,08/23/2007,07/19/20 07 Influenza, Unspecified 08/16/2008,07/05/2005 Td (Adult), adsorbed 05/08/2003 Tdap 08/10/2012 Family History Medical History Relation Name Comments Brain cancer Maternal Grandfather Relation Name Status Comments Father Half-Brother 1 Alive Half-Brother 2 Alive Half-Sibling Alive Half-Sister 1 Alive Half-Sister 2 Alive Maternal Grandfather (Age 55) Maternal Grandmother Alive Mother Alive Mother's Brother Alive Mother's Sister Alive Son 1 Alive Son 2 Alive Social History Tobacco Use Types Packs/Day Years Used Date Smoking Tobacco: Every Day Cigarettes Smokeless Tobacco: Never Tobacco Cessation:Ready to Q uit: Not Asked; Counseling Given: Not Answered Alcohol Use Standard Drinks/Week Comments Yes 0 (1 standard drink = 0.6 oz pur e alcohol) social [employer] Utilities Answer Date Recorded In the past 12 months has e [employer], gas, oil, or water [employer] threatened to shut off services in your [...] your living situation today? I have a [facility] place to live 02/07/2024 Sex and Gender Information Value Date Recorded Sex Assigned at Female 02/05/2024 10:49 PM CDT Gender Identity Female 02/05/2024 10:49 PM CDT Sexual Orientation Straight 02/05/2024 10 :49 PM CDT Last Filed Vital Signs Vital Sign Reading Time Taken Comments Blood Pressure 100/64 07/26/2019 9:07 AM PASSENGER RELATIONS REPRESENTATIVE Pulse 80 07/26/2019 9:07 AM PASSENGER RELATIONS REPRESENTATIVE Temperature - - Respiratory Rate 16 07/26/2019 9:07 AM PASSENGER RELATIONS REPRESENTATIVE Oxygen Saturation - - Inhaled Oxygen Concentration - - Weight 97.1 kg (214 lb 1.1 oz) 07/26/2019 9:07 A M PASSENGER RELATIONS REPRESENTATIVE Height 167.6 cm (5' 5.98) 07/26/2019 9:07 AM CS T Body Mass Index 34.57 07/26/2019 9:07 AM PASSENGER RELATIONS REPRESENTATIVE Plan of Treatment Upcoming Encounters Date Type Department Care Team (Latest Contact Info) Description 07/13/2024 11:00 AM PASSENGER RELATIONS REPRESENTATIVE Clinical Communication Virtual Review in [place], [place] [address] [place] [address] 07/17/2024 7:45 AM PASSENGER RELATIONS REPRESENTATIVE Appointment Department of Radiology, [facility], in [place], [place] [address] [place] [phone] Phuong Barrientos APRN, C.N.P., M.S.N. [address] [place] [phone] 07/17/2024 1:30 PM PASSENGER RELATIONS REPRESENTATIVE Procedure visit Department of Urology in [place], [place] [address] [place] [phone] Phuong Barrientos APRN, Manish.N.P., M.S.N. [address] [place] [phone] 07/17/2024 2:30 PM PASSENGER RELATIONS REPRESENTATIVE Comprehensive Visit Department of Urology in [place], [place] [address] [place] [phone] Lotus Marshall APRN, Manish.N.P., M.S.N. [address] [place] [phone] Health Maintenance Due Date Last Done Comments CT Colonography 1978 Cologuard 1978 Colonoscopy 1978 Colorectal Cancer Screening 1978 FIT 1978 HIV Screening 1978 Hepatitis C Screening 1978 Lipid (Cholesterol) Screening 1978 Mammogram 1978 Tobacco Cessation counseling 1978 Pneumococcal vaccine (0-64 y ears) (1 of 2 - PCV) 1984 Cervical Cancer Screening 02/01/2016 01/31/2013 Fasting Glucose for Diabetes Screening 07/06/2021 07/06/2018 DTaP,Tdap,and Td Vaccines (2 - Td or Tdap) 08/10/2022 08/10/2012, 05/08/2003 Depression Screening (Annual PHQ-2) 08/08/2023 COVID-19 Vaccine ( season) 2024 Influenza Vaccine (#1) 2024 3, 08/16/2008, 07/05/2005 Hepatitis B Vaccines Completed 01/08/2008, 08/23/2007, 07/19/2007 Procedures Procedure Name Priority Date/Time Associated Diagnosis Comments [facility] Routine 03/23/2024 2 :44 PM CDT MISCELLANEOUS SENT OUT LAB TEST Routine 03/23/2024 2:44 PM CDT Mass Kidney Kidney And Ureter Disorder from Last 3 Months Results * [facility] (03/23/2024 2:44 PM CDT) Test Name CustomNext-C ancer 04/27/2024 2:44 PM CDT AMBR Result CANCELED 04/28/2024 11:25 AM CDT AMBR Comment: Test not performed. QNS Result canceled by the ancillary. 03/23/2024 2:44 PM CDT 04/27/2024 2:44 PM CDT Santos Hawkins M.D. LAB [facility] ORDERABLE S [facility] [employer] [address] [place] [address], [facility] AMBR [facility] [employer] [address] [place] [address] * [id number] CustomNext-Cancer - Miscellaneous Test (03/23/2024 2:44 PM CDT) Test Name CustomNext- Cancer 04/27/2024 2:45 PM CDT HLS Saliva (Mouth) 03/23/2024 2: 44 PM CDT 04/27/2024 2:44 PM CDT Santos Hawkins M.D. LAB [facility] ORDERABLE S [facility] [address] [place] [address], [facility] [address] [place] [address] from Last 3 Months
--- OUTSIDE RECORDS SUMMARY | 2024-05-18 09:31 | XMS_ITS | Encounter Summary ---
Author Organization [facility] Address [address] [place] [address] Care Team Providers Care Mutual Fund Sales Agent Name Role Phone Unavailable Primary Care Provider Unavailabl e Reason for Visit * Reason Onset Date Comments Ambry : BABS 03/23/2024 Encounter Details Date Type Department Care Team (Late st Contact Info) Description 03/23/2024 Clinical Communication Department of Medical Genetics in [place], [place] [address] [place] [address] Loreto Abdul M.S., [facility] [address] [place] [address] Ambry : BABS Social History Tobacco Use Types Packs/Day Years Used Date Smoking Tobacco: Every Day Cigarettes Smokeless Tobacco: Never Alcohol Use Standard Drinks/Week Comments Yes 0 (1 standard drink = 0.6 oz pur e alcohol) social [employer] Utilities Answer Date Recorded In the past 12 months has [employer], gas, oil, or water [employer] threatened to shut off services in your [...] money to buy more. Never true 02/07/20 Within the past 12 months, t he [...] your living situation today? I have a [facility] place to live 02/07/2024 Sex and Gender Information Value Date Recorded Sex Assigned at Female 02/05/2024 10:49 PM CDT Gender Identity Female 02/05/2024 10:49 PM CDT Sexual Orientation Straight 02/05/2024 10 :49 PM CDT documented as of this encounter Miscellaneous Notes * Telephone Encounter - Brittaney Hidalgo - 03/23/2024 11:28 AM CDT Date: 03/23/24 Lab: Michelle Test: non-RNA Sample: Lab to mail a kit to the pt and Mail Order has been scheduled and checked in. Provider: Loreto Abdul CGC Insurance: Drive (Including All Savers Insurance) Need to submit PA documented in this encounter Plan of Treatment Upcoming Encounters Date Type Department Care Team (Latest Contact Info) Description 07/13/2024 11:00 AM COMMUNITY HEALTH NURSE SUPERVISOR Clinical Communication Virtual Review in [place], [place] [address] [place] [phone] 07/17/2024 7:45 AM COMMUNITY HEALTH NURSE SUPERVISOR Appointment Department of Radiology, [facility], in [place], [place] [address] [place] [address] Phuong Barrientos APRN, C.NPaulo, M.S.N. [address] [place] [phone] 07/17/2024 1:30 PM COMMUNITY HEALTH NURSE SUPERVISOR Procedure visit Department of Urology in [place], [place] [address] [place] [phone] Phuong Barrientos APRN, C.N.P., M.S.N. [address] [place] [phone] 07/17/2024 2:30 PM COMMUNITY HEALTH NURSE SUPERVISOR Comprehensive Visit Department of Urology in [place], [place] [address] [place] [phone] Lotus Marshall APRN, C.NRachelle., M.S.N. [address] [place] [phone] documented as of this encounter Visit Diagnoses Not on filedocumented in this encounter
--- OUTSIDE RECORDS SUMMARY | 2024-05-18 09:31 | XMS_ITS | Referral Summary ---
Author Organization [facility] Address [address] [place] [address] Care Team Providers Care Castables Worker Name Role Phone Unavailable Primary Care Provider Unavailabl e Source Comments Patient records contain information from all sites at [facility]. For routine questions regarding patient records, call [phone] during business hours, M-F 8:00 AM - 5:00 PM Central Time. Record requests for emergency care only can be directed to [phone] at any time.[facility] Encounters Date Type Department Care Team Description 03/23/2024 Clinical Communication Department of Medical Genetics in [place], [place] [address] [place] [address] Loreto Abdul M.S., [facility] Ambry : LO 03/23/2024 11:27 AM CDT - 03/23/2024 11:59 PM CDT Hospital Encounter Department of Laboratory Medicine and Pathology, [facility] in [place], [place] [address] [place] [address] Santos Hawkins M.D. Mass Kidney; Kidney And Ureter Disorder Discharge Disposition: Home or Self Care 03/21/2024 9:15 AM CDT Telemedicine Department of Medical Genetics in [place], [place] [address] [place] [address] Phuong Barrientos, ANY, C.N.P., M.S.N. Loreto Abdul M.S., [facility] Mass Kidney; Kidney And Ureter Disorder from Last 3 Months Allergies No known active allergies Medications Medication [...] Cyst Ovary 03/09/2013 07/26/2019 Menorrhagia 03/09/2013 07/26/2019 Immunizations Name Administration Dates Next Due HepB, Unspecified 01/08/2008,08/23/2007,07/19/20 07 Influenza, Unspecified 08/16/2008,07/05/2005 Td (Adult), adsorbed 05/08/2003 Tdap 08/10/2012 Social History Tobacco Use Types Packs/Day Years Used Date Smoking Tobacco: Every Day Cigarettes Smokeless Tobacco: Never Tobacco Cessation:Ready to Q uit: Not Asked; Counseling Given: Not Answered Alcohol Use Standard Drinks/Week Comments Yes 0 (1 standard drink = 0.6 oz pur e alcohol) social [employer] Utilities Answer Date Recorded In the past 12 months has e [employer], gas, oil, or water [employer] threatened to shut off services in your [...] your living situation today? I have a [facility] place to live 02/07/2024 Sex and Gender Information Value Date Recorded Sex Assigned at Female 02/05/2024 10:49 PM CDT Gender Identity Female 02/05/2024 10:49 PM CDT Sexual Orientation Straight 02/05/2024 10 :49 PM CDT Last Filed Vital Signs Vital Sign Reading Time Taken Comments Blood Pressure 100/64 07/26/2019 9:07 AM ELECTROMECHANICAL ASSEMBLER Pulse 80 07/26/2019 9:07 AM ELECTROMECHANICAL ASSEMBLER Temperature - - Respiratory Rate 16 07/26/2019 9:07 AM ELECTROMECHANICAL ASSEMBLER Oxygen Saturation - - Inhaled Oxygen Concentration - - Weight 97.1 kg (214 lb 1.1 oz) 07/26/2019 9:07 A M ELECTROMECHANICAL ASSEMBLER Height 167.6 cm (5' 5.98) 07/26/2019 9:07 AM CS T Body Mass Index 34.57 07/26/2019 9:07 AM ELECTROMECHANICAL ASSEMBLER Plan of Treatment Upcoming Encounters Date Type Department Care Team (Latest Contact Info) Description 07/13/2024 11:00 AM ELECTROMECHANICAL ASSEMBLER Clinical Communication Virtual Review in [place], [place] [address] [place] [address] 07/17/2024 7:45 AM ELECTROMECHANICAL ASSEMBLER Appointment Department of Radiology, [facility], in [place], [place] [address] [place] [phone] Phuong Barrientos APRN, C.N.P., M.S.N. [address] [place] [phone] 07/17/2024 1:30 PM ELECTROMECHANICAL ASSEMBLER Procedure visit Department of Urology in [place], [place] [address] [place] [phone] Phuong Barrientos APRN, C.N.P., M.S.N. [address] [place] [address] 07/17/2024 2:30 PM ELECTROMECHANICAL ASSEMBLER Comprehensive Visit Department of Urology in [place], [place] [address] [place] [address] Lotus Marshall APRN, JamaalNPaulo, M.S.N. [address] [place] [phone] Procedures Procedure Name Priority Date/Time Associated Diagnosis Comments [facility] [employer] GENET[employer] Routine 03/23/2024 2 :44 PM CDT MISCELLANEOUS SENT OUT LAB TEST Routine 03/23/2024 2:44 PM CDT Mass Kidney Kidney And Ureter Disorder from Last 3 Months Results * [facility] [employer] Genetics (03/23/2024 2:44 PM CDT) Test Name CustomNext-C ancer 04/27/2024 2:44 PM CDT AMBR Result CANCELED 04/28/2024 11:25 AM CDT AMBR Comment: Test not performed. QNS Result canceled by the ancillary. 03/23/2024 2:44 PM CDT 04/27/2024 2:44 PM CDT Santos Hawkins M.D. LAB [facility] ORDERABLE S [facility] [address] [place] [address], [facility] AMBR [employer] [address] [place] [address] * [id number] CustomNext-Cancer - Miscellaneous Test (03/23/2024 2:44 PM CDT) Test Name CustomNext- Cancer 04/27/2024 2:45 PM CDT HLS Saliva (Mouth) 03/23/2024 2: 44 PM CDT 04/27/2024 2:44 PM CDT Santos Hawkins M.D. LAB MISC ORDERABLE S [facility] [address] [place] [address], [facility] [address] [place] [address] from Last 3 Months
--- OUTSIDE RECORDS SUMMARY | 2024-05-18 09:31 | XMS_ITS | Encounter Summary ---
Author Organization [facility] Address [address] [place] [address] Care Team Providers Care Sports Apparel Internship Name Role Phone Unavailable Primary Care Provider Unavailabl e Reason for Visit * Outpatient (Routine) - Closed Specialty Diagnoses / Procedures Referred By Marquis reveles Referred To Contact Clinical Genomics Diagnoses Mass Kidney Kidney And Ureter Disorder Phuong Barrientos APRN, C.N.PRoxanna, M.S.N. [address] [place] [phone] [facility] Referral ID Status Reason Start Date Expiration Date Visits Re quested Visits Authorized [id number] Closed 02/07/2024 08/08/2025 1 1 Encounter Details Date Type Department Care Team (Late st Contact Info) Description 03/21/2024 9:15 AM CDT Telemedicine Department of Medical Genetics in [place], [place] [address] [place] [phone] Phuong Barrientos APRN, C.N.P., M.S.N. [address] [place] [phone] Loreto Abdul M.S., [facility] [address] [place] [phone] Mass Kidney; Kidney And Ureter Disorder Social History Tobacco Use Types Packs/Day Years Used Date Smoking Tobacco: Every Day Cigarettes Smokeless Tobacco: Never Alcohol Use Standard Drinks/Week Comments Yes 0 (1 standard drink = 0.6 oz pur e alcohol) social C Utilities Answer Date Recorded In the past 12 months has th e electric, [employer], oil, or water [employer] threatened to shut off services in your [...] your living situation today? I have a [facility] place to live 02/07/2024 Sex and Gender Information Value Date Recorded Sex Assigned at Female 02/05/2024 10:49 PM CDT Gender Identity Female 02/05/2024 10:49 PM CDT Sexual Orientation Straight 02/05/2024 10 :49 PM CDT documented as of this encounter Consult Notes * Loreto Abdul M.S., [facility] - 03/21/2024 9:15 AM CDT Images from the original note were not included. REFERRING PROVIDER Phuong Barrientos, APR* CHIEF COMPLAINT Personal history of a renal mass, suspected cancer HISTORY OF PRESENT ILLNESS Gisela Rocha was referred today by Phuong Barrientos, APR* due to their diagnosis of a renal mass which is suspected to be cancerous.. Gisela was found to have a renal mass and an ovarian tumor when she presented at the ED in October due to abdominal pain. 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 She was recently seen in urology to discuss management for the renal mass. Imaging completed in the beginning of February showed growth in the lesion compared to imaging completed in October. The family history is significant for brain cancer in her maternal grandfather. Please see family history section below for additional details. Gisela attended today???s virtual consultation unaccompanied. Consult conducted via real-time audio/video technology by Loreto Abdul M.S., [facility] in [place] to the patient in her home. FAMILY HISTORY A detailed family history was obtained from the patient and a pedigree was constructed. The pedigree will be saved as a scanned document and available for viewing under the Media tab of Be Here. Our risk assessment is based upon medical and family history information as provided by the patient, and may change in the future should new information be obtained. Relevant History: -maternal grandfather with brain cancer causing his at age 55 IMPRESSION/REPORT/PLAN PATIENT EDUCATION Cancer is a relatively common diagnosis in the general population, and the majority of these cancers are either sporadic or familial. Hereditary cancers are caused by mutations within a single cancersusceptibility gene. Families with hereditary cancers tend to have the following features: specifictypes of cancer in multiple close relatives and in several consecutive generations, early age at diagnosis (under 50), multiple primary or bilateral tumors, and a lack of environmental or other knownrisk factors. The patient and I briefly reviewed information about renal cancer. The most common type of renal cancer is clear cell. Approximately 70-80% of individuals have this type of renal cancer. Less common types of renal cancer include papillary, chromophobe and collecting duct. Renal cancer is more common in men, and approximately 1 out of 63 individuals is diagnosed with renal cancer. The average at diagnosis is 64. Most cases of renal cancer are sporadic, and risk factors for renal cancer include: smoking, obesity, hypertension, kidney disease, and kidney dialysis. We discussed testing panels that cover many genes known or thought to be associated with hereditaryor familial cancer. Mutations in some of the genes account for rare hereditary cancer syndromes that include significant risks for cancer, while other genes are currently thought of as modifier genesthat potentially increase the risk for cancer. There are several limitations of these tests. The exact cancer risks for some of the genes that are included on these panels are not known at this pointin time. Therefore, it may be difficult to provide appropriate screening/medical management recommendations. Additionally, there is a significant chance that a variant of uncertain significance may be identified. We discussed different hereditary cancer panel test options. Laws governing genetic discrimination were discussed. Risks, benefits, and limitations of genetic testing were discussed. Implications of possible test results, including positive, negative, and variant of uncertain significance, were discussed. MARY Higgins elected to pursue the [employer] Cancer panel through [employer]. Gisela willbe mailed a saliva collection kit from the laboratory. The laboratory will bill the patient's insurance directly and will contact the patient if the out of pocket cost is greater than $100.Results will become available approximately 2-3 weeks from the release of testing. Screening and management recommendations will be made for the patient and their family members at the time of results disclosure. If results are negative or a variant of uncertain significance is identified, the patient will be contacted with results via the patient portal. If results are positive or complex, the patient will be offered an in-person or video return visit. If genetic test results are negative or a variant of uncertain significance is identified, the following screening recommendations would apply for Gisela and their relatives. PERSONAL SCREENING It is important for the patient to continue to follow the cancer screening recommendations providedby their physicians. FAMILY SCREENING Individuals in this family with a first- or second-degree relative diagnosed with renal cancer may remain at elevated empiric risk for renal cancer given their family history. These individuals wouldbe advised to share their family history with their care providers and discuss their screening options with their care providers. There are currently no national screening guidelines for individuals with a family history of renal cancer. However, screening may include regular imaging tests such as CT, MRI, or ultrasound scans at younger ages. These screening recommendations are based on national guidelines. Final screening recommendations should be deferred to the discretion of the managing physician. Other screening recommendations, suchas those made by the [place] Cancer Society, do remain appropriate. It was a pleasure to meet Gisela. They are certainly welcome to contact me with any additional questions. Total Time: 28 minutes PATIENT EDUCATION: All of the above was discussed in detail with the patient who verbalized understanding. The patient's questions were answered. documented in this encounter Plan of Treatment Upcoming Encounters Date Type Department Care Team (Latest Contact Info) Description 07/13/2024 11:00 AM COLLAR SEPARATOR Clinical Communication Virtual Review in [address] [phone] 07/17/2024 7:45 AM COLLAR SEPARATOR Appointment Department of Radiology, [facility], in [address] [phone] Phuong Barrientos APRN, C.N.P., M.S.N. [address] [place] [phone] 07/17/2024 1:30 PM COLLAR SEPARATOR Procedure visit Department of Urology in [address] [phone] Phuong Barrientos APRN, C.N.aErl., M.S.N. [address] [place] [phone] 07/17/2024 2:30 PM COLLAR SEPARATOR Comprehensive Visit Department of Urology in [address] [phone] Lotus Marshall APRN, C.N.P., M.S.N. [address] [place] [phone] documented as of this encounter Results * [id number] CustomNext-Cancer - Miscellaneous Test (03/23/2024 2:44 PM CDT) Test Name CustomNext- Cancer 04/27/2024 2:45 PM CDT HLS Saliva (Mouth) 03/23/2024 2: 44 PM CDT 04/27/2024 2:44 PM CDT Santos Hawkins M.D. LAB MISC ORDERABLE S [facility] [address] [place] [address], [facility] [address] [place] [address] documented in this encounter Visit Diagnoses Diagnosis Mass Kidney Kidney And Ureter Disorder documented in this encounter
--- OUTSIDE RECORDS SUMMARY | 2024-05-18 09:31 | XMS_ITS ---
Author Organization [facility] Address [address] [place] [address] Care Team Providers Care Nail Polish Brush Machine Feeder Name Role Phone Unavailable Unavailable Unavailable Surgery Details Not on file Complications Check Surgery Details section. Procedure Estimated Blood Loss Check Surgery Details section. Procedure Findings Check Surgery Details section. Procedure Specimens Taken Check Surgery Details section.
--- OUTSIDE RECORDS SUMMARY | 2024-05-18 09:31 | XMS_ITS | Encounter Summary ---
Author Organization [facility] Address [address] [place] [address] Care Team Providers Care Clinical Research Physician Name Role Phone Unavailable Primary Care Provider Unavailabl e Encounter Details Date Type Department Care Team (Latest Contact Info) Description 03/23/2024 11:27 AM CDT - 03/23/2024 11:59 PM CDT Hospital Encounter Department of Laboratory Medicine and Pathology, [facility] in [place], [place] [address] [place] [address] Santos Hawkins M.D. [address] [place] [address] Mass Kidney; Kidney And Ureter Disorder Discharge Disposition: Home or Self Care Social History Tobacco Use Types Packs/Day Years Used Date Smoking Tobacco: Every Day Cigarettes Smokeless Tobacco: Never Alcohol Use Standard Drinks/Week Comments Yes 0 (1 standard drink = 0.6 oz pur e alcohol) social [facility] Utilities Answer Date Recorded In the past 12 months has [employer], gas, oil, or water [employer] threatened to shut off services in your [...] your living situation today? I have a [facility] place to live 02/07/2024 Sex and Gender Information Value Date Recorded Sex Assigned at Female 02/05/2024 10:49 PM CDT Gender Identity Female 02/05/2024 10:49 PM CDT Sexual Orientation Straight 02/05/2024 10 :49 PM CDT documented as of this encounter Medications at Time of Discharge Medication Sig Dispensed Refills Start Date End Date ACETAMINOPHEN ORAL Take 1 capsule by mouth as needed. IBUPROFEN ORAL Take 1 capsule by mouth as needed. documented as of this encounter Plan of Treatment Upcoming Encounters Date Type Department Care Team (Latest Contact Info) Description 07/13/2024 11:00 AM TRAY CHECKER Clinical Communication Virtual Review in [place], [place] [address] [place] [address] 07/17/2024 7:45 AM TRAY CHECKER Appointment Department of Radiology, [facility], in [place], [place] [address] [place] [phone] Phuong Barrientos APRN, C.N.P., M.S.N. [address] [place] [phone] 07/17/2024 1:30 PM TRAY CHECKER Procedure visit Department of Urology in [place], [place] [address] [place] [address] Phuong Barrientos APRN, C.NRachelle., M.S.N. [address] [place] [address] 07/17/2024 2:30 PM TRAY CHECKER Comprehensive Visit Department of Urology in [place], [place] [address] [place] [phone] Lotus Marshall APRN, C.N.P., M.S.N. [address] [place] [phone] documented as of this encounter Procedures Procedure Name Priority Date/Time Associated Diagnosis Comments [facility] [employer] Routine 03/23/2024 2 :44 PM CDT MISCELLANEOUS SENT OUT LAB TEST Routine 03/23/2024 2:44 PM CDT Mass Kidney Kidney And Ureter Disorder documented in this encounter Results * [facility] [employer] (03/23/2024 2:44 PM CDT) Test Name CustomNext-C ancer 04/27/2024 2:44 PM CDT AMBR Result CANCELED 04/28/2024 11:25 AM CDT AMBR Comment: Test not performed. QNS Result canceled by the ancillary. 03/23/2024 2:44 PM CDT 04/27/2024 2:44 PM CDT Santos Hawkins M.D. LAB [facility] ORDERABLE S [facility] [address] [place] [address], [facility] AMBR [facility] [address] [place] [address] * [id number] CustomNext-Cancer - Miscellaneous Test (03/23/2024 2:44 PM CDT) Test Name CustomNext- Cancer 04/27/2024 2:45 PM CDT HLS Saliva (Mouth) 03/23/2024 2: 44 PM CDT 04/27/2024 2:44 PM CDT Santos Hawkins M.D. LAB MISC ORDERABLE S [facility] [address] [place] [address], [facility] HLS [facility] [address] [place] [address] documented in this encounter Visit Diagnoses Diagnosis Mass Kidney Kidney And Ureter Disorder documented in this encounter
== END 2024-05-17 09:08 | disposition home or self-care (01) ==
LOC: NFLDREF 05-18 09:29
PROVIDERS: PCP Nurse Practitioner Family; Referring Provider Nurse Practitioner Family; Visit Provider Internal Medicine
DX: R39.9 Unspecified symptoms and signs involving the genitourinary system (principal); N39.0 Urinary tract infection, site not specified
CPT/HCPCS: 87086; 87186

== ENCOUNTER 2024-11-06 08:59 | Outpatient (CLI) | payer OTHER, SELFPAY | END 2024-11-06 09:00 | disposition home or self-care (01) | PROVIDERS: PCP Nurse Practitioner Family; Visit Provider Nurse Practitioner Family | DX: E78.5 Hyperlipidemia, unspecified (principal) | CPT/HCPCS: 80061 ==

== ENCOUNTER 2025-05-10 11:51 | Outpatient (CLI) | payer OTHER, SELFPAY | END 2025-05-10 11:52 | disposition home or self-care (01) | PROVIDERS: PCP Nurse Practitioner Family; Visit Provider Nurse Practitioner Family | DX: Z13.6 Encounter for screening for cardiovascular disorders (principal); Z13.1 Encounter for screening for diabetes mellitus | CPT/HCPCS: 80061; 82947 ==